=== PATIENT | male | born 1985 | race Caucasian/White ===

== ENCOUNTER 2016-09-30 21:06 | Emergency (ER) | payer SELFPAY ==
--- NOTE | ~2016-09-30 | CR94 ---
[facility] A Service of [facility] & [facility] RADIOLOGY TEXT RESULTS PATIENT: SHONDA POLK LOCATION: CFTX : [id number] UNIT #: [id number] AGE: [address]: SAURABH HAMLIN APRN SEX: M ORDER DR: [id number] [facility] [place] [address] [place], [place] [address] [id number] E MR#: [id number] Acc #: [id number] NAME: SHONDA POLK : 1985 SEX: M STUDY DATE/TIME: 09/30/2016 21:26 UNIT: [facility] ROOM: STUDY DESCRIPTION: CR Elbow Min 3 Views Rt Attending Physician: Saurabh Hamlin Aprn Ordering Physician: Saurabh Hamlin Aprn Primary Care Physician: No Primary Care Physician MEDICAL IMAGING REPORT This report is preliminary unless electronic signature is present EXAM Right elbow. HISTORY Right elbow pain today, playing on skateboard and apparently fell. FINDINGS AP and lateral examination of the elbow shows satisfactory articulation of the humerus with the proximal radius and ulna. There is no identifiable fracture, dislocation, joint effusion, or radiopaque foreign body in the soft tissues. IMPRESSION Normal right elbow. Dictated by... Chip Winn M.D. THIS IS AN ELECTRONICALLY VERIFIED REPORT Chip Winn M.D. at 10/01/2016 2:05 PM [place] TD: 09/30/2016 22:54 JOB #: [id number] MEDICAL IMAGING REPORT Page 1 of 1 COPY
== END 2016-09-30 23:00 | disposition home or self-care (01) ==
LOC: CFTX 21:06
DX: S53.401A Unspecified sprain of right elbow, initial encounter (principal); F17.210 Nicotine dependence, cigarettes, uncomplicated; Y93.51 Activity, roller skating (inline) and skateboarding; Y92.830 Public park as the place of occurrence of the external cause
CPT/HCPCS: 73080; 99283